=== PATIENT | female | born 1965 | race Hispanic/Latino ===

== ENCOUNTER 2022-10-17 01:32 | Emergency (ER) | payer BC ==
[~2022-10-17] VITALS: Ht 160 cm; Wt 78.9 kg
[2022-10-17 01:34] VITALS: BP 107/46
== END 2022-10-17 04:45 | disposition left against medical advice (07) ==
LOC: EDH 01:32
DX: R10.9 Unspecified abdominal pain (principal); R11.2 Nausea with vomiting, unspecified; R19.7 Diarrhea, unspecified
CPT/HCPCS: 99281